=== PATIENT | male | born 1975 ===

== ENCOUNTER 2017-01-06 08:05 | Inpatient (IN) | payer OTHER ==
[2017-01-06 08:13] VITALS: BMI 34.8
[2017-01-06] MEDS ORDERED: Sodium Chloride 0.9% 1,000 ML IV STA (08:21)
[2017-01-06 08:40] LABS: BASO % 0.1 % (0.0-2.0); EOS # 0.3 K/uL (0.0-0.7); EOS % 2.2 % (0.0-4.0); HEMATOCRIT 41.8 % (35.0-51.0); LYMPH # 3.5 K/uL (1.0-4.3); LYMPH % 22.8 % (20.0-40.0); MEAN CELL VOLUME 94.8 fl (80.0-94.0); MEAN CORPUSCULAR HEMOGLOBIN 30.7 pg (27.0-31.0); MEAN CORPUSCULAR HGB CONC 32.4 g/dL (33.0-37.0); MEAN PLATELET VOLUME 10.7 fl (7.2-11.7); MONO # 1.3 K/uL (0.0-0.8); MONO % 8.3 % (0.0-10.0); NEUT # 10.1 K/uL (1.8-7.0); NEUT % 66.6 % (50.0-75.0); RED CELL DISTRIBUTION WIDTH 14.4 % (11.5-14.5); WHITE BLOOD COUNT 15.2 K/uL (4.8-10.8)
[2017-01-06 09:07] LABS: ALB/GLOB RATIO 1.3 (1.0-2.1); ALCOHOL SERUM < 10 mg/dl (0-10); ALKALINE PHOSPHATASE 76 U/L (38-126); ALT/SGPT 33 U/L (21-72); AST/SGOT 61 U/L (17-59); BLOOD UREA NITROGEN 31 mg/dl (9-20); CALCIUM 10.1 mg/dL (8.4-10.2); CARBON DIOXIDE 14 mmol/L (22-30); CHLORIDE 111 mmol/L (98-107); GFR AFRICAN-AMERICAN 28; GLUCOSE,RANDOM 135 mg/dL (75-110); POTASSIUM 4.2 MMOL/L (3.6-5.0); SODIUM 158 mmol/l (132-148); TOTAL PROTEIN 8.9 G/DL (6.3-8.2)
[2017-01-06 09:11] LABS: PARTIAL THROMBOPLASTIN TIME 30.9 Seconds (25.6-37.1)
[2017-01-06] MEDS ORDERED: [UNRECOGNIZED DRUG - OTHER] IV SCH (14:00)
[2017-01-06] MEDS ORDERED: DEXTROSE IV SCH (14:00)
[2017-01-06] MEDS ORDERED: SODIUM BICARBONATE IV SCH (14:00)
[2017-01-06 14:27] LABS: PHOSPHOROUS 6.9 mg/dl (2.5-4.5); URIC ACID 11.3 mg/Dl (3.5-8.5)
[2017-01-07 05:47] LABS: BASO % 0.1 % (0.0-2.0); EOS # 0.2 K/uL (0.0-0.7); HEMATOCRIT 36.6 % (35.0-51.0); LYMPH # 1.5 K/uL (1.0-4.3); LYMPH % 15.3 % (20.0-40.0); MEAN CELL VOLUME 93.2 fl (80.0-94.0); MEAN CORPUSCULAR HEMOGLOBIN 31.3 pg (27.0-31.0); MEAN CORPUSCULAR HGB CONC 33.5 g/dL (33.0-37.0); MONO # 1.1 K/uL (0.0-0.8); MONO % 11.1 % (0.0-10.0); NEUT # 7.1 K/uL (1.8-7.0); NEUT % 71.5 % (50.0-75.0); RED CELL DISTRIBUTION WIDTH 14.4 % (11.5-14.5); WHITE BLOOD COUNT 9.9 K/uL (4.8-10.8)
[2017-01-07 06:01] LABS: ALB/GLOB RATIO 1.1 (1.0-2.1); BILIRUBIN,TOTAL 0.9 mg/dl (0.2-1.3); CALCIUM 8.3 mg/dL (8.4-10.2); POTASSIUM 3.3 MMOL/L (3.6-5.0); TOTAL PROTEIN 6.5 G/DL (6.3-8.2)
[2017-01-07] MEDS: Potassium CL 10 MEQ/50 ML 50 ML IVPB SCH ×2 (10:08→14:22)
[2017-01-07] MEDS: Potassium Chloride 20 mEq ER Tab PO SCH (16:54)
[2017-01-07] MEDS: Sodium Chloride 0.9% 1,000 ML IV SCH (23:37)
[2017-01-08] MEDS: Sodium Chloride 0.9% 1,000 ML IV SCH (05:38)
[2017-01-08 06:26] LABS: CALCIUM 8.6 mg/dL (8.4-10.2); TOTAL PROTEIN 6.7 G/DL (6.3-8.2); URIC ACID 9.1 mg/Dl (3.5-8.5)
[2017-01-08 06:34] LABS: POTASSIUM 3.5 MMOL/L (3.6-5.0)
[2017-01-08] MEDS: Potassium Chloride 20 mEq ER Tab PO SCH (08:32)
[2017-01-08] MEDS: Dextrose 5%/0.9% NS 1,000 ML IV SCH ×3 (10:16→20:59)
[2017-01-08] MEDS: Sodium Bicarbonate 8.4% 50 MEQ in Dextrose 5%/0.9% NS 1,000 ML IV SCH ×3 (10:18→20:59)
[2017-01-09] MEDS: Sodium Bicarbonate 8.4% 50 MEQ in Dextrose 5%/0.9% NS 1,000 ML IV SCH (02:46)
[2017-01-09] MEDS: Dextrose 5%/0.9% NS 1,000 ML IV SCH ×2 (02:46→08:42)
[2017-01-09 05:03] LABS: HEMATOCRIT 39.9 % (35.0-51.0); MEAN CELL VOLUME 92.5 fl (80.0-94.0); MEAN CORPUSCULAR HEMOGLOBIN 30.3 pg (27.0-31.0); MEAN CORPUSCULAR HGB CONC 32.8 g/dL (33.0-37.0); WHITE BLOOD COUNT 8.9 K/uL (4.8-10.8)
[2017-01-09 05:31] LABS: BILIRUBIN,TOTAL 0.6 mg/dl (0.2-1.3); CALCIUM 8.5 mg/dL (8.4-10.2); POTASSIUM 3.7 MMOL/L (3.6-5.0); TOTAL PROTEIN 6.9 G/DL (6.3-8.2)
[2017-01-10 00:37] VITALS: RESP 18
[2017-01-10 07:44] LABS: HEMATOCRIT 38.1 % (35.0-51.0); MEAN CELL VOLUME 91.1 fl (80.0-94.0); MEAN CORPUSCULAR HEMOGLOBIN 30.7 pg (27.0-31.0); MEAN CORPUSCULAR HGB CONC 33.6 g/dL (33.0-37.0); RED CELL DISTRIBUTION WIDTH 13.8 % (11.5-14.5)
[2017-01-10 08:12] LABS: BLOOD UREA NITROGEN 12 mg/dl (9-20); CALCIUM 8.7 mg/dL (8.4-10.2); CARBON DIOXIDE 26 mmol/L (22-30); CHLORIDE 106 mmol/L (98-107); GFR AFRICAN-AMERICAN > 60; GLUCOSE,RANDOM 100 mg/dL (75-110); POTASSIUM 3.5 MMOL/L (3.6-5.0); SODIUM 144 mmol/l (132-148)
[2017-01-10 12:19] VITALS: BP 128/78; PULSE 64; TEMP 99.2; O2SAT 97
[2017-01-10] MEDS ORDERED: Potassium Chloride 20 mEq ER Tab PO ONE (15:50)
== END 2017-01-10 16:45 | disposition home or self-care (01) | DRG 568 ==
LOC: H.ER 08:05 → H.ERHOLD 11:16 → H.TEL 13:16
PROVIDERS: ADMIT Internal Medicine; ATTEND Internal Medicine
DX: N17.9 Acute kidney failure, unspecified (principal); M62.82 Rhabdomyolysis; E86.0 Dehydration; E87.6 Hypokalemia; T43.621A Poisoning by amphetamines, accidental (unintentional), initial encounter; Z78.1 Physical restraint status; Y92.9 Unspecified place or not applicable; E66.9 Obesity, unspecified; Z68.41 Body mass index [BMI] 40.0-44.9, adult; F31.9 Bipolar disorder, unspecified; F41.9 Anxiety disorder, unspecified; Z87.891 Personal history of nicotine dependence; R74.8 Abnormal levels of other serum enzymes